=== PATIENT | male | born 1995 | race Caucasian/White ===

== ENCOUNTER 2017-12-09 17:23 | Emergency (ER) | payer OTHER ==
[2017-12-09 17:30] VITALS: BP 167/90
[2017-12-09] MEDS ORDERED: BACITRACIN OINT TOP STA (17:57)
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
== END 2017-12-09 18:12 | disposition home or self-care (01) ==
LOC: ED 17:23
DX: S01.01XD Laceration without foreign body of scalp, subsequent encounter (principal); X58.XXXD Exposure to other specified factors, subsequent encounter
CPT/HCPCS: 99281; 99282; A9270